=== PATIENT | female | born 1995 | race African-American/Black ===

== ENCOUNTER 2019-03-28 13:38 | Emergency (ER) | payer OTHER ==
[~2019-03-28] VITALS: Ht 160 cm; Wt 52.2 kg
== END 2019-03-28 16:52 | disposition home or self-care (01) ==
LOC: ER 13:38
DX: H66.92 Otitis media, unspecified, left ear (principal); J03.80 Acute tonsillitis due to other specified organisms; J06.9 Acute upper respiratory infection, unspecified; R09.81 Nasal congestion; R07.0 Pain in throat; R05 Cough